=== PATIENT | male | born 1970 | race Caucasian/White ===

== ENCOUNTER 2020-05-05 11:18 | Inpatient (IN) | payer MEDICAID ==
[~2020-05-05] VITALS: Ht 172.7 cm; Wt 61.7 kg
[2020-05-05] MEDS ORDERED: DiphenhydrAMINE HCL 50 MG/ML VIAL IM ONE (11:45)
[2020-05-05] MEDS ORDERED: LORazepam 2 MG/ML VIAL IM ONE (11:45)
[2020-05-05] MEDS ORDERED: HALOPERIDOL LACTATE 5 MG/ML VIAL IM ONE (11:45)
[2020-05-05 13:02] LABS: BASOPHILS % (AUTO) 0.8 % (0.0-2.0); EOSINOPHILS % (AUTO) 0.1 % (1.0-6.0); HEMOGLOBIN 12.4 g/dL (13.5-17.5); LYMPHOCYTES # (AUTO) 1.6 K/uL (1.0-4.8); LYMPHOCYTES % (AUTO) 18.9 % (22.0-44.0); MEAN CORPUSCULAR HEMOGLOBIN 30.1 pg (26.0-34.0); MEAN CORPUSCULAR HGB CONC 33.6 G/dL (31.0-37.0); MEAN CORPUSCULAR VOLUME 90 fL (80-100); MONOCYTES # (AUTO) 0.5 K/uL (0.1-1.0); MONOCYTES % (AUTO) 5.8 % (2.0-9.0); NEUTROPHILS # (AUTO) 6.3 K/uL (1.8-7.7); NEUTROPHILS % (AUTO) 74.4 % (40.0-70.0); PLATELET COUNT (AUTO) 157 K/uL (150-450); RED BLOOD CELL COUNT(AUTO) 4.13 MIL/uL (4.50-5.90); RED CELL DISTRIBUTION WIDTH 12.4 % (11.5-14.5)
[2020-05-05 13:37] LABS: ANION GAP 8 mmol/L (8-16); CALCIUM, TOTAL 8.8 mg/dL (8.8-10.5); CARBON DIOXIDE 25 mmol/L (22-29); CHLORIDE 103 mmol/L (98-107); CREATININE 0.76 mg/dL (0.60-1.30); GLOMERULAR FILTR. RATE CALC > 60 mL/min (>60); GLUCOSE,RANDOM 79 mg/dL (70-110); POTASSIUM 3.4 mmol/L (3.5-5.1); SODIUM SERUM 136 mmol/L (136-145); UREA NITROGEN, BLOOD 14 mg/dL (7-18)
[2020-05-05] MEDS ORDERED: POTASSIUM CHLORIDE 20 MEQ ER TABLET PO ONE (13:45)
[2020-05-05 13:52] LABS: ALBUMIN 3.5 g/dL (3.4-5.0); ALKALINE PHOSPHATASE 110 U/L (46-116); BILIRUBIN,TOTAL 0.8 mg/dL (0.1-1.0); TOTAL PROTEIN, SERUM 7.9 g/dL (6.4-8.2)
[2020-05-05 14:03] LABS: ALANINE AMINOTRANSFERASE 38 U/L (12-78); ASPARTATE AMINOTRANSFERASE 31 U/L (15-37)
[2020-05-05 15:52] LABS: COVID AG,FIA SOURCE NASOPHARYNGEAL
[2020-05-05] MEDS ORDERED: ZOLPIDEM TARTRATE 10 MG TABLET PO PRN (16:30)
[2020-05-05] MEDS ORDERED: HALOPERIDOL 5 MG TABLET PO PRN (16:30)
[2020-05-05] MEDS ORDERED: LORazepam 2 MG TABLET PO PRN (16:30)
[2020-05-05 19:00] VITALS: BP 101/68
[2020-05-05] MEDS ORDERED: NICOTINE 14 MG/24 HOUR PATCH TD PRN (19:30)
[2020-05-05] MEDS: OLANZapine 10 MG TABLET PO SCH (20:37)
[2020-05-06 08:00] VITALS: BP 128/75
[2020-05-06] MEDS: OLANZapine 10 MG TABLET PO SCH ×2 (09:10→16:29)
[2020-05-06 16:08] VITALS: BP 131/82
[2020-05-07 08:00] VITALS: BP 131/85
[2020-05-07] MEDS: OLANZapine 10 MG TABLET PO SCH ×2 (08:11→16:04)
[2020-05-07 16:21] VITALS: BP 150/89
[2020-05-07 16:30] LABS: AMPHET/METH SCREEN,URINE NEGATIVE (NEGATIVE); BARBITURATE SCREEN, URINE NEGATIVE (NEGATIVE); BENZODIAZEPINES SCREEN,URINE NEGATIVE (NEGATIVE); CANNABINOID SCREEN,URINE POSITIVE (NEGATIVE); COCAINE SCREEN,URINE NEGATIVE (NEGATIVE); METHADONE SCREEN, URINE NEGATIVE (NEGATIVE); OPIATE SCREEN,URINE NEGATIVE (NEGATIVE)
[2020-05-07 16:53] LABS: PHENCYCLIDINE SCREEN,URINE NEGATIVE (NEGATIVE)
[2020-05-08 08:28] VITALS: BP 154/88
[2020-05-08] MEDS: OLANZapine 10 MG TABLET PO SCH ×2 (08:31→17:01)
[2020-05-08] MEDS ORDERED: IBUPROFEN 400 MG TABLET PO PRN (14:15)
[2020-05-08] MEDS ORDERED: GuaiFENesin/D-METHORPHAN [SUGAR-FREE] 200-20MG/10 ML SYRUP UDCUP PO PRN (14:15)
[2020-05-08] MEDS ORDERED: PETROLATUM,WHITE 28 GM JELLY TP PRN (14:15)
[2020-05-08] MEDS ORDERED: ONDANSETRON HCL 4 MG TABLET PO PRN (14:15)
[2020-05-08] MEDS ORDERED: MAG HYDROX/AL HYDROX/SIMETH ES 30 ML SUSPENSION UDCUP PO PRN (14:15)
[2020-05-08] MEDS ORDERED: MAGNESIUM HYDROXIDE SUSPENSION 30 ML UDCUP PO PRN (14:15)
[2020-05-08] MEDS ORDERED: LOPERAMIDE HCL 2 MG CAPSULE PO PRN (14:15)
[2020-05-08] MEDS ORDERED: CloNIDine HCL 0.1 MG TABLET PO PRN (14:15)
[2020-05-08] MEDS ORDERED: NICOTINE 14 MG/24 HOUR PATCH TD PRN (14:15)
[2020-05-08] MEDS ORDERED: ALBUTEROL SULFATE HFA 90 MCG/PUFF 8 GM INHALER IH PRN (14:15)
[2020-05-08] MEDS ORDERED: DOCUSATE SODIUM 100 MG CAPSULE PO PRN (14:15)
[2020-05-08 18:44] VITALS: BP 124/73
[2020-05-09 08:15] VITALS: BP 137/86
[2020-05-09] MEDS: OLANZapine 10 MG TABLET PO SCH ×2 (09:16→16:20)
[2020-05-09 09:18] LABS: CHOL/HDL RATIO 4.7 (4.2-7.3); POTASSIUM 4.1 mmol/L (3.5-5.1)
[2020-05-09 16:10] VITALS: BP 117/72
[2020-05-10] MEDS: OLANZapine 10 MG TABLET PO SCH ×2 (07:58→16:27)
[2020-05-10 08:00] VITALS: BP 150/90
[2020-05-10] MEDS: ACETAMINOPHEN 325 MG TABLET PO PRN (08:02)
[2020-05-10 09:00] VITALS: BP 145/90
[2020-05-10 18:29] VITALS: BP 139/79
[2020-05-11] MEDS: OLANZapine 10 MG TABLET PO SCH ×2 (08:06→16:32)
[2020-05-11 08:35] VITALS: BP 136/84
[2020-05-11 16:24] VITALS: BP 132/81
[2020-05-11] MEDS: FERROUS SULFATE 325 MG EC TABLET PO SCH (16:32)
[2020-05-11 23:21] LABS: COVID AG,FIA SOURCE NASOPHARYNGEAL
[2020-05-12] MEDS: FERROUS SULFATE 325 MG EC TABLET PO SCH ×3 (06:53→16:33)
[2020-05-12 08:00] VITALS: BP 130/79
[2020-05-12] MEDS: OLANZapine 10 MG TABLET PO SCH ×2 (08:52→16:33)
[2020-05-12 16:36] VITALS: BP 125/70
[2020-05-13] MEDS: FERROUS SULFATE 325 MG EC TABLET PO SCH ×3 (06:47→16:42)
[2020-05-13 08:00] VITALS: BP 121/80
[2020-05-13] MEDS: OLANZapine 10 MG TABLET PO SCH ×2 (08:05→16:42)
[2020-05-13 16:57] VITALS: BP 123/76
[2020-05-13 18:09] VITALS: BP 150/70
[2020-05-13] MEDS: ACETAMINOPHEN 325 MG TABLET PO PRN (18:12)
[2020-05-14] MEDS: FERROUS SULFATE 325 MG EC TABLET PO SCH (06:47)
[2020-05-14 08:00] VITALS: BP 127/82
[2020-05-14] MEDS ORDERED: OLAN10TA3 PO (08:02)
[2020-05-14] MEDS: OLANZapine 10 MG TABLET PO SCH (08:18)
== END 2020-05-14 12:47 | disposition home or self-care (01) | DRG 750 ==
LOC: EMS 11:18 → 3EC 16:18
PROVIDERS: ADMIT Psychiatry & Neurology Psychiatry; ATTEND Psychiatry & Neurology Psychiatry
DX: F20.9 Schizophrenia, unspecified (principal); E87.6 Hypokalemia; F14.10 Cocaine abuse, uncomplicated; F41.9 Anxiety disorder, unspecified; D64.9 Anemia, unspecified; Z20.822 Contact with and (suspected) exposure to COVID-19
CPT/HCPCS: 84132; 87081; 87426; 99291; G0480; J1200; J1630; J2060